=== PATIENT | male | born 1995 | race Two or more races ===

== ENCOUNTER 2020-01-09 17:31 | Emergency (ER) | payer SELFPAY ==
[~2020-01-09] VITALS: Ht 170.2 cm; Wt 79.5 kg
[2020-01-09 18:30] VITALS: BP 119/69
[2020-01-09] MEDS ORDERED: DEXAMETHASONE SOD PHOS 20 MG/5 ML VIAL. IM ONE (18:45)
[2020-01-09] MEDS ORDERED: diphenhydrAMINE HCL 25 MG CAPSULE PO ONE (18:45)
[2020-01-09] MEDS ORDERED: PRED20TA PO (19:12)
--- NOTE | 2020-01-09 19:12 | PHYS DOC ---
Past Medical History Past Medical History: No Pertinent History Past Surgical History: Other Additional Past Surgical Histo: left hand sx Smoking Status: Never Smoker Alcohol Use: Occasionally General Adult EDM: Chief Complaint: SKIN PROBLEM HPI: HPI: Patient is a 24 year old male, accompanied by his significant other, who presents to the emergency department with complaints of a itchy rash to both of his arms and hands, his chest, and spreading to his face. He states his symptoms started 2 days ago after he had worked in his backyard and came in co ntact with some poison abel. He denies any shortness of breath, wheezing, fever, swelling, vision changes, tearing, or pain. His only complaint at this time is severe itching. Review of Systems: Review of Systems: Complete review of systems is negative unless otherwise documented in the HPI Heart Score: Risk Factors: Risk Factors: DM, Current or recent (<one month) smoker, HTN, HLP, family history of CAD, obesity. Risk Scores: Score 0 - 3: 2.5% MACE over next 6 weeks - Discharge Home Score 4 - 6: 20.3% MACE over next 6 weeks - Admit for Clinical Observation Score 7 - 10: 72.7% MACE over next 6 weeks - Early Invasive Strategies Current Medications: Current Medications Medications (Trade) Dose Ordered Sig/Delisa Start Time Stop Time Status Last Admin Dose Admin Dexamethasone Sodium Phosphate (Decadron) 10 mg 1X ONCE 01/09/20 18:45 01/09/20 18:46 DC Diphenhydramine HCl (Benadryl) 25 mg 1X ONCE 01/09/20 18:45 01/09/20 18:46 DC Allergies: Allergies: Allergies Coded Allergies Type Severity Reaction Last Updated Verified No Known Drug Allergies 01/09/20 No Physical Exam: PE: Constitutional: Well developed, well nourished, no acute distress, non-toxic appearance. [] HENT: Normocephalic, atraumatic, bilateral external ears normal, nose normal. [] Eyes: PERRLA, EOMI, conjunctiva normal, no discharge. [] Neck: Normal range of motion, no stridor. [] Cardiovascular:Heart rate regular rhythm Lungs & Thorax: Respirations even and unlabored, no retractions, no respiratory distress, lungs CTA Skin: Warm, dry, no erythema; erythemic, maculopapular rash noted to bilateral upper extremities and hands, and anterior chest, consistent with contact dermatitis Extremities: No cyanosis, ROM intact, no edema. [] Neurologic: Alert and oriented X 3, no focal deficits noted. [] Psychologic: Affect normal, judgement normal, mood normal. [] Current Patient Data: Vital Signs: Vital Signs Date Time Temp Pulse Resp B/P (MAP) Pulse Ox O2 Delivery O2 Flow Rate FiO2 01/09/20 18:30 99.4 56 16 119/69 (86) 98 Room Air 99.4 EKG: EKG: [] Radiology/Procedures: Radiology/Procedures: [] Course & Med Decision Making: Course & Med Decision Making Pertinent Labs and Imaging studies reviewed. (See chart for details) [] Dragon Disclaimer: [employer] Disclaimer: This electronic medical record was generated, in whole or in part, using a voice recognition dictation system. Departure Departure Impression: Primary Impression: Contact dermatitis Qualified Codes: L23.7 - Allergic contact dermatitis due to plants, except food Disposition: HOME, SELF-CARE Condition: STABLE Referrals: NO PCP (PCP) Patient Instructions: Contact Dermatitis, [id number] Additional Instructions: Fill prescription(s) and use as directed. Recommend [id number] Benadryl and [id number] Benadryl itch relief cream or calamine lotion for relief of itching. May also apply a mixture of 50% water 50% vinegar to affected areas to help dry rash up. Follow up with your primary care doctor if symptoms worsen or persist. Scripts Prednisone (PREDNISONE) 20 Mg Tablet 1 TAB PO UD for 12 Days, #15 TAB 2 tabs by mouth days 1,2,3 then 1.5 tabs by mouth days 4,5,6 then 1 tab by mouth days 7,8,9 then 0.5 tab by mouth day 10,11,12 Prov: MIRA CONKLIN APRN 01/09/20 Justicifation of Admission Dx: Justifications for Admission: Justification of Admission Dx: N/A MIRA CONKLIN APRN Jan 09, 2020 19:12
== END 2020-01-09 19:27 | disposition home or self-care (01) ==
LOC: EDBD 17:31 → ER 17:31
DX: L23.7 Allergic contact dermatitis due to plants, except food (principal)
CPT/HCPCS: 96372; 99283; J1100; Q0163